=== PATIENT | male | born 1950 | race Caucasian/White ===

== ENCOUNTER 2018-03-07 20:47 | Emergency (ER) | payer MEDICARE, BC ==
[2015-11-16 17:16] VITALS: Wt 99.8 kg
[~2018-03-07 20:47] MED LIST: ASPI-1471 PO; CELE-1 PO; DOCU-416 PO; ESOM40CA42 PO; ESZ3PT PO; OXYC-865 PO; TAMS0.4C70 PO
--- NOTE | 2018-03-07 21:02 | ER Report ---
History and Physical Time Seen By MD: 21:01 HPI/ROS CHIEF COMPLAINT: Right hand injury HISTORY OF PRESENT ILLNESS: 67-year-old male patient presents to emergency room with complaint of right hand injury. Patient states he was at a dance recital for his granddaughter when he tripped over the seton fell onto them. He states when he did that that his fifth finger extended out resulting in a laceration between the fourth and fifth fingers. Also is having significant amounts of pain to the right fifth finger. He believes that he may have dislocated the finger. He denies any numbness or tingling. He states that his last tetanus shot was approximately 10 years ago. He denies any head or neck pain. He denies any nausea, vomiting or diarrhea. REVIEW OF SYSTEMS: Respiratory: No cough, no dyspnea. Cardiovascular: No chest pain, no palpitations. Gastrointestinal: No vomiting, no abdominal pain. Musculoskeletal: As noted above Allergies: Coded Allergies: No Known Drug Allergies (Unverified , 03/07/18) Home Meds Active Scripts Cephalexin 500 Mg Tab (KEFLEX 500 MG TAB) 500 Mg Tablet, 500 MG PO Q6H, #28 TAB Prov:GIOVANY MATAMOROS [facility] 03/07/18 Hydrocodone Bit/Acetaminophen (HYDROCODON-ACETAMINOPHEN 5-325) 1 Each Tablet, 1 EACH PO Q4-6H Y for PAIN, #12 TAB Prov:GIOVANY MATAMOROS [facility] 03/07/18 Reported Medications Chlorthalidone (CHLORTHALIDONE) 25 Mg Tab, 25 MG PO QDAY, TAB 03/07/18 Zolpidem Tartrate (AMBIEN) 10 Mg Tablet, 1 TAB PO QHS, TAB 03/07/18 Esomeprazole Magnesium (NEXIUM) 40 Mg Capsule.dr, 1 CAP PO QDAY, CAP 11/15/15 Tamsulosin Hcl (TAMSULOSIN HCL) 0.4 Mg Cap.er.24h, 0.4 MG PO QDAY, CAP 11/15/15 Aspirin (ASPIR 81) 81 Mg Tablet.dr, 81 MG PO QDAY, TAB 11/15/15 Discontinued Reported Medications Celecoxib (CELEBREX) 200 Mg Capsule, 200 MG PO PRN, CAPSULE 11/27/15 Past Medical/Surgical History Patient has a past medical history of asthma, cholecystitis, reflux, BPH, alcohol use. Patient has surgical history of hand surgery, bilateral shoulder surgery, bilateral hip replacement. Reviewed Nurses Notes: Yes Hx Smoking: Yes Smoking Status: Former Smoker Hx Substance Use Disorder: No Hx Alcohol Use: Yes Constitutional Vital Sign - Last 24 Hours 03/07/18 03/07/18 03/07/18 03/07/18 21:02 21:02 21:11 21:17 Temp 98.2 Pulse 75 72 Resp 16 B/P (MAP) 174/114 174/114 (134) 168/98 (121) Pulse Ox 92 94 O2 Delivery Room Air 03/07/18 03/07/18 03/07/18 03/07/18 21:32 21:47 22:02 22:17 Pulse 76 78 77 76 Pulse Ox 93 93 94 94 Physical Exam General Appearance: The patient is alert, has no immediate need for airway protection and no current signs of toxicity. Respiratory: Chest is non tender, lungs are clear to auscultation. Cardiac: regular rate and rhythm Gastrointestinal: Abdomen is soft and non tender, no masses, bowel sounds normal. Musculoskeletal: Neck: Neck is supple and non tender. Extremities have full range of motion and are non tender. Patient has deformity to the right fifth finger, laceration between the fourth and fifth fingers. It measures approximately 5 cm in length. I'm able to visualize the subcutaneous tissue. Patient is unable to adduct the fifth finger on the right hand. Skin: No rashes or lesions. DIFFERENTIAL DIAGNOSIS: After history and physical exam differential diagnosis was considered for fracture, dislocation, laceration. Medical Decision Making EKG/Imaging Imaging HAND COMPLETE RIGHT COMPARISONS: None. ADDITIONAL PERTINENT HISTORY: Fall with pain FINDINGS: Osseous structures: Remote-appearing bony irregularity involving the midportion of the right fifth metacarpal. No acute appearing bony abnormalities. Mild subchondral sclerosis and osteophyte formation involving the DIP joints of the right hand. Joint spaces: Mild joint space narrowing involving the DIP joints of the right hand. Surrounding soft tissues: Negative. IMPRESSION: 1. Remote appearing healed fracture of the midportion of the right fifth metacarpal. 2. Mild osteoarthritic changes involving the DIP joints of the right hand. 3. No acute bony abnormalities. Report Dictated By: Chip Aranda MD at 03/07/2018 9:57 PM Report E-Signed By: Chip Aranda MD at 03/07/2018 10:00 PM INDICATION: Postreduction EXAM DATE: 03/07/2018 10:47 PM COMPARISON: Same-day radiographs. FINDINGS: 3 views right small finger. Mineralization is normal. No acute alignment abnormality or fracture. Abnormal morphology of the 5th metacarpal likely related to remote fracture. Soft tissues appear swollen, and there is a small amount of soft tissue gas likely related to disruption. No radiopaque foreign body IMPRESSION: Suspected soft tissue disruption with no acute osseous abnormality of the right small finger. Report Dictated By: Justin Otero MD at 03/07/2018 11:06 PM Report E-Signed By: Justin Otero MD at 03/07/2018 11:09 PM ED Course/Re-evaluation ED Course Patient was admitted to exam room, history and physical were obtained. Differential diagnoses were considered. On examination lungs are clear, however patient does have a 5 cm laceration to the webbing between the fourth and fifth fingers. Patient has what appears to be a dislocation of the fifth finger. X- rays done of the right hand which did show no acute abnormalities, does appear to be lax to the medial aspect of the hand. The wound was anesthetized, cleaned and repaired as described below. A repeat x-ray was done after the digit was reduced. It does appear to be slightly improved. We will go ahead and place the patient in a ulnar gutter splint. I will have the patient follow-up with Dr. segura. He is to call on Friday to make an appointment. He can make an appointment in the clinic in [place]. I would like to go ahead and ice his hand through the splint. I discussed this with the patient and his and they verbalized understanding and agreement with plan. Procedure: Laceration repair. Verbal consent was obtained from the patient. The 5 cm laceration on the webbing between the fourth and fifth fingers was anesthetized in the usual fashion. The wound was scrubbed, draped and explored to its base with a gloved finger. There were no deep structures involved. There does appear to be laxities patient is not able to abduct his fifth finger. The wound was repaired with 12 simple interrupted sutures using 5-0 Prolene material. The wound repair was simple. The procedure was performed by myself. Procedure: Dislocation reduction. The right fifth finger was reduced in the usual fashion without complications. Post reduction the patient's neurovascular exam is normal. Post reduction x-ray demonstrates reduction of the joint to the anatomic position. The procedure was performed by myself. Procedure: Splint placement. A ulnar gutter splint was applied. After application of the splint I returned and re-examined the patient. The splint was adequately immobilizing the joint and distal to the splint the patient's circulation and sensation was intact. Decision to Disposition Date: March 07, 2018 Decision to Disposition Time: 22:58 Depart Departure Latest Vital Signs Vital Signs Date Time Temp Pulse Resp B/P (MAP) Pulse Ox O2 Delivery O2 Flow Rate FiO2 03/07/18 22:17 76 94 03/07/18 21:11 168/98 (121) 03/07/18 21:02 98.2 16 Room Air Impression: Primary Impression: Laceration Condition: Improved Disposition: HOME OR SELF-CARE Referrals: GHASSAN ALLEN MD Scripts Cephalexin 500 Mg Tab (KEFLEX 500 MG TAB) 500 Mg Tablet 500 MG PO Q6H, #28 TAB Prov: GIOVANY MATAMOROS 03/07/18 Hydrocodone Bit/Acetaminophen (HYDROCODON-ACETAMINOPHEN 5-325) 1 Each Tablet 1 EACH PO Q4-6H Y for PAIN, #12 TAB Prov: GIOVANY MATAMOROS 03/07/18 Patient Instructions: Hand Laceration Additional Instructions: Keep wound dry for 48 hours. Follow up with orthopedist,: Friday to make appointment. Monitor for signs of infection; redness, swelling, heat, discharge, increasing pain or red streaking. Return to the ER with any concerns. You may change dressing as needed. Limit activity by pain. Ice the hand through the splint; 2-3 times a day for 20-30 minutes. If the splint is feeling too tight you may loosen the moi wrap and rewrap it. Keep the splint dry, wrap it with a bag and tape to keep the water out. Return to the ER with uncontrollable pain or numbness to the hand. You may take Ibuprofen as needed for pain in addition to the pain medication. I do have some concern about a torn ligament in the hand, that is why it is so important that you follow up with an orthopedists. GIOVANY MATAMOROS March 07, 2018 21:01
[2018-03-07] MEDS ORDERED: ZOLP-350 PO (21:07)
[2018-03-07] MEDS ORDERED: CHLOR25 PO (21:08)
[2018-03-07] MEDS ORDERED: DIPHTH/TETANUS/ACEL. PERTUSSIS IM ONLY ONE (21:15)
[2018-03-07] MEDS ORDERED: APAP/HYDROCODONE 325/5 TAB PO ONE (21:50)
--- NOTE | 2018-03-07 22:04 | RADIOLOGY IMAGING REPORT ---
FACILITY: [facility] PATIENT NAME: Delta Kimble : 1950 MR: [id number] V: [id number] EXAM DATE: ORDERING PHYSICIAN: GIOVANY MATAMOROS TECHNOLOGIST: Location: [facility] Patient: Delta Kimble : 1950 Visit/Account:[id number] Date of Sevice: 03/07/2018 HAND COMPLETE RIGHT COMPARISONS: None. ADDITIONAL PERTINENT HISTORY: Fall with pain FINDINGS: Osseous structures: Remote-appearing bony irregularity involving the midportion of the right fifth me tacarpal. No acute appearing bony abnormalities. Mild subchondral sclerosis and osteophyte formation involving the DIP joints of the right hand. Joint spaces: Mild joint space narrowing involving the DIP joints of the right hand. Surrounding soft tissues: Negative. IMPRESSION: 1. Remote appearing healed fracture of the midportion of the right fifth metacarpal. 2. Mild osteoarthritic changes involving the DIP joints of the right hand. 3. No acute bony abnormalities. Report Dictated By: Chip Aranda MD at 03/07/2018 9:57 PM Report E-Signed By: Chip Aranda MD at 03/07/2018 10:00 PM WSN:[id number]
[2018-03-07] MEDS ORDERED: HYDR-385 PO (23:00)
[2018-03-07] MEDS ORDERED: CEPH500T7 PO (23:00)
--- NOTE | 2018-03-07 23:14 | RADIOLOGY IMAGING REPORT ---
FACILITY: [facility] [place] PATIENT NAME: Delta Kimble : 1950 MR: [id number] V: [id number] EXAM DATE: [id number] ORDERING PHYSICIAN: GIOVANY MATAMOROS TECHNOLOGIST: Location: [facility] [place] Patient: Delta Kimble : 1950 Visit/Account:[id number] Date of Sevice: 03/07/2018 INDICATION: Postreduction EXAM DATE: 03/07/2018 10:47 PM COMPARISON: Same-day radiographs. FINDINGS: 3 views right small finger. Mineralization is normal. No acute alignment abnormality or fracture. Ab normal morphology of the 5th metacarpal likely related to remote fracture. Soft tissues appear swoll en, and there is a small amount of soft tissue gas likely related to disruption. No radiopaque forei gn body IMPRESSION: Suspected soft tissue disruption with no acute osseous abnormality of the right small fi nger. Report Dictated By: Justin Otero MD at 03/07/2018 11:06 PM Report E-Signed By: Justin Otero MD at 03/07/2018 11:09 PM WSN:[id number]
[2018-03-07] MEDS ORDERED: ACET/HYDROC 5/325MG TH ER ONLY 2 TAB/BOTTLE PO ONE (23:15)
[2018-03-07] MEDS ORDERED: CEPHALEXIN 500 MG CAP TH 2 CAP/BOTTLE PO ONE (23:15)
[2018-03-07 23:28] VITALS: BP 173/104
== END 2018-03-07 23:40 | disposition home or self-care (01) ==
LOC: ER 21:06
DX: S61.411A Laceration without foreign body of right hand, initial encounter (principal); S63.256A Unspecified dislocation of right little finger, initial encounter; W01.190A Fall on same level from slipping, tripping and stumbling with subsequent striking against furniture, initial encounter
CPT/HCPCS: 12002; 26700; 73130; 73140; 90471; 90715; 99282; A9270

== ENCOUNTER → 2018-05-27 | Outpatient (CLI) | payer BC, MEDICARE ==
[2015-11-16 17:16] VITALS: BMI 28.2
[~2018-05-27] MED LIST changes: +ALBU8.5H IH; +CEPH500T7 PO; +CHLOR25 PO; +FLUINH INH; +HYDR-385 PO; +LOSA50TA72 PO; +ZOLP-350 PO
[2018-05-27 14:14] LABS: LDL CHOLESTEROL 84 mg/dl
[2018-05-27 15:11] LABS: PLATELET COUNT, AUTOMATED 207 K/uL (150-450)
== END ==
LOC: LAB 13:44
PROVIDERS: ATTEND Emergency Medicine
DX: Z12.5 Encounter for screening for malignant neoplasm of prostate (principal); I10 Essential (primary) hypertension
CPT/HCPCS: 36415; 82040; 82247; 82310; 82374; 82435; 82465; 82565; 82947; 83718; 84075; 84132; 84153; 84155; 84295; 84443; 84450; 84460; 84478; 84520; 85025

== ENCOUNTER → 2018-06-08 | Outpatient (CLI) | payer MEDICARE, BC ==
[2015-11-16 17:16] VITALS: BMI 28.2
== END ==
LOC: RESP 00:44
PROVIDERS: ATTEND Emergency Medicine
DX: J98.4 Other disorders of lung (principal)
CPT/HCPCS: 94060; 94726; 94729

== ENCOUNTER → 2018-07-01 | Outpatient (CLI) | payer MEDICARE, BC ==
[2015-11-16 17:16] VITALS: BMI 28.2
[~2018-07-01] MED LIST changes: +AMLO-111 PO; -LOSA50TA72 PO; +LOSA50TA74 PO; +NITR0.4T3 SL; +ROSU10TA5 PO
--- NOTE | 2018-07-01 16:15 | EKG ---
FACILITY: [facility] PATIENT NAME: NEETU ADORNO : [id number] MR: [id number] V: [id number] EXAM DATE: ORDERING PHYSICIAN: SHAVON DEGROOT TECHNOLOGIST: ABBY Test Reason : CHEST PAIN Blood Pressure : / mmHG Vent. Rate : 085 BPM Atrial Rate : 085 BPM P-R Int : 152 ms QRS Dur : 104 ms QT Int : 348 ms P-R-T Axes : 071 019 008 degrees QTc Int : 414 ms Normal sinus rhythm Normal ECG Confirmed by SHAVON DEGROOT ([id number]) on 07/02/2018 5:46:49 PM Referred By: Confirmed By:SHAVON DEGROOT
[2018-07-01 16:46] LABS: PLATELET COUNT, AUTOMATED 172 K/uL (150-450)
== END ==
LOC: LAB 16:04
PROVIDERS: ATTEND Emergency Medicine
DX: I10 Essential (primary) hypertension (principal)
CPT/HCPCS: 36415; 82310; 82374; 82435; 82565; 82947; 84132; 84295; 84484; 84520; 85025; 85379

== ENCOUNTER → 2018-07-21 | Outpatient (CLI) | payer MEDICARE, BC ==
[2015-11-16 17:16] VITALS: BMI 28.2
[~2018-07-21] MED LIST changes: +CAR3.125 PO; +LOSA100T69 PO; +REGADENOSON 0.4 MG/5 ML SYR ONE
--- NOTE | 2018-07-21 16:50 | RADIOLOGY IMAGING REPORT ---
FACILITY: [facility] [place] PATIENT NAME: Delta Kimble : 1950 MR: [id number] V: [id number] EXAM DATE: ORDERING PHYSICIAN: SHAVON DEGROOT TECHNOLOGIST: Location: [facility] Patient: Delta Kimble : 1950 Visit/Account:[id number] Date of Sevice: 07/21/2018 EXAMINATION: Single isotope SPECT imaging with Regadenoson infusion and gated SPECT imaging. DATE OF EXAMINATION: July 21, 2018. DATE OF INTERPRETATION: July 21, 2018. REQUESTING PHYSICIAN: SHAVON DEGROOT. INDICATION: The patient is a 68-year-old male evaluated for chest pain. PROCEDURE: After informed consent the patient received an intravenous injection of 11.2 mCi of Tc-99 m sestamibi followed at an appropriate time interval by rest imaging. The patient then subsequently received an intravenous infusion of 0.4 mg of Regadenoson per protocol without complication. Resting heart rate was 82 bpm with a peak heart rate of 107 bpm. Blood pressure at rest was 125 / 81 and fo llowing infusion was 144 / 70. Baseline EKG demonstrates normal sinus rhythm with inferior wave abno rmalities. There were no diagnostic EKG changes of ischemia following infusion. Symptoms were nonsp ecific. The patient then received an intravenous injection of 29.2 mCi of Tc-99m sestamibi followed by stress imaging. RAW DATA: Examination of the summed raw data revealed a fair quality study. MYOCARDIAL PERFUSION: The tomographic images demonstrate a subtle inferior defect at rest that seems to improve with stress and nearly normalizes with prone imaging. This is likely diaphragmatic attenu ation in an otherwise normal study. A small inferior wall NE cannot be completely excluded. No ischem ia would be predicted.. GATED IMAGES: The gated images demonstrate a normal ejection fraction at 60%. The wall motion is nor mal.. IMPRESSION: 1. Baseline EKG shows normal sinus rhythm with inferior T wave abnormalities. There are no diagnosti c changes during the procedure. The perfusion imaging has an inferior defect that is felt to be artif act. This is probably a normal scan. A small inferior wall NE cannot be completely excluded. No ische vtia would be predicted. 2. Probably normal myocardial perfusion scan. 3. Normal LV systolic function; LVEF 60%. 4. Based on the results of this exam, the patient appears to be at low risk for future cardiovascular events. Report Dictated By: Paul Espinoza MD at 07/21/2018 4:42 PM Report E-Signed By: Paul Espinoza MD at 07/21/2018 4:45 PM WSN:[id number]
== END ==
LOC: NUC 00:31
PROVIDERS: ATTEND Emergency Medicine
DX: R07.9 Chest pain, unspecified (principal)
CPT/HCPCS: 78452; 93017; A9500; J2785

== ENCOUNTER → 2018-08-06 | Outpatient (CLI) | payer MEDICARE, BC ==
[2015-11-16 17:16] VITALS: BMI 28.2
[~2018-08-06] MED LIST changes: +FLU180SY11 IM; -REGADENOSON 0.4 MG/5 ML SYR ONE; +[UNRECOGNIZED DRUG - CODE] PO
== END ==
LOC: LAB 08:19
PROVIDERS: ATTEND Emergency Medicine
DX: G62.9 Polyneuropathy, unspecified (principal); I10 Essential (primary) hypertension
CPT/HCPCS: 36415; 82465; 82607; 83718; 84478

== ENCOUNTER → 2018-09-09 | Outpatient (CLI) | payer MEDICARE, BC ==
[2015-11-16 17:16] VITALS: BMI 28.2
[~2018-09-09] MED LIST changes: +CAR6.25 PO; +CYA1000 PO
--- NOTE | 2018-09-11 18:38 | RT HOLTER TEST ---
FACILITY: [facility] PATIENT NAME: NEETU ADORNO : [id number] MR: [id number] V: [id number] EXAM DATE: ORDERING PHYSICIAN: SHAVON DEGROOT TECHNOLOGIST: Brian Hook-up date: 2018-09-09 08:29:00 Duration: 47:59:00 Test Indications: CP Medications: 840895 QRS complexes 1186 Ventricular ectopics which represent <1 % of total QRS comp. 777 Supraventricular ectopics which represent <1 % of total QRS comp. * Paced QRS complexes which represent % of total QRS comp. VENTRICULAR ECTOPY 1179 Isolated 0 Bigeminal Cycles 2 Couplets 1 Runs 3 Beats in Runs 3 Beats LONGEST at 174 BPM at 23:35:32 2018-09-09 3 Beats FASTEST at 174 BPM at 23:35:32 2018-09-09 SUPRAVENTRICULAR ECTOPY 631 Isolated 65 Couplets 5 Runs 16 Beats in Runs 4 Beats LONGEST at 138 BPM at 04:21:24 2018-09-11 4 Beats FASTEST at 138 BPM at 04:21:24 2018-09-11 HEART RATES 50 MIN at 02:12:30 2018-09-10 73 AVG 123 MAX at 15:05:25 2018-09-10 LONGEST RR 1.552 secs at 04:54:18 2018-09-10 Channel 2 -12.800 mm MIN at 08:29:00 2018-09-09 -12.800 mm MAX at 08:29:00 2018-09-09 Channel 3 -12.800 mm MIN at 08:29:00 2018-09-09 -12.800 mm MAX at 08:29:00 2018-09-09 Sinus rhythm Premature ventricular complexes Couplets Premature supraventricular complexes Confirmed by ALL SANCHEZ ([id number]) on 09/11/2018 6:39:02 PM Referred By: Overread By: ALL SANCHEZ
== END ==
LOC: RESP 01:04
PROVIDERS: ATTEND Emergency Medicine
DX: I49.49 Other premature depolarization (principal)
CPT/HCPCS: 93225; 93226

== ENCOUNTER 2018-10-22 18:44 | Emergency (ER) | payer MEDICARE ==
[2015-11-16 17:16] VITALS: Wt 111.1 kg
[~2018-10-22 18:44] MED LIST changes: -LOSA100T69 PO; +LOSA100T75 PO; -LOSA50TA74 PO; +LOSA50TA80 PO
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
[2018-10-22] MEDS ORDERED: fentaNYL CITR 100 MCG/2 ML AMP IVP ONE (19:00)
[2018-10-22] MEDS ORDERED: ONDANSETRON 4 MG/2 ML VIAL IVP ONE (19:00)
[2018-10-22] MEDS ORDERED: LIDOCAINE 2% VISC SLN 15ML UDC PO ONE (19:00)
[2018-10-22] MEDS ORDERED: MAG HYD/AL HYD/SIMETH 30ML UDC PO ONE (19:00)
[2018-10-22 19:11] LABS: PLATELET COUNT, AUTOMATED 218 K/uL (150-450)
[2018-10-22] MEDS ORDERED: NS(*) 0.9% 1000 ML BAG 1,000 ML IV ONE (19:45)
[2018-10-22] MEDS ORDERED: IOPAMIDOL 76% 75 ML INFUS BTL 75 ML ONE (20:10)
[2018-10-22 21:30] VITALS: BP 127/78
--- NOTE | 2018-10-22 21:38 | RADIOLOGY IMAGING REPORT ---
FACILITY: [facility] [place] PATIENT NAME: Delta Kimble : 1950 MR: [id number] V: [id number] EXAM DATE: ORDERING PHYSICIAN: DELTA WOODRUFF TECHNOLOGIST: Location: [facility] - [place] Patient: Delta Kimble : 1950 Visit/Account:[id number] Date of Sevice: 10/22/2018 CT of the chest, abdomen, and pelvis with contrast: Indication: Chronic chest pain and epigastric pain. Technique: Helical CT was performed through the chest, abdomen, and pelvis following IV contrast enha ncement with 75 cc of Isovue-370. Multiplanar reconstructions are reviewed. One of the following dose optimization techniques was utilized in the performance of this exam: Autom ated exposure control; adjustment of the mA and/or kV according to the patient's size; or use of an i terative reconstruction technique. Specific details can be referenced in the facility's radiology CT exam operational policy. Comparison: None available. Findings: Lungs: Well-expanded and clear. No focal or diffuse parenchymal abnormalities are identified. Pleural spaces: There is no evidence of effusion, focal pleural thickening, calcification, or mass. Mediastinum: There is mild calcification in the aortic wall and coronary arteries. There are no signs of aortic aneurysm, dissection, or significant atherosclerosis. The heart size is normal. No pericardial effusion or soft tissue abnormality is identified. There are no signs of mediastinal soft tissue mass or lymph node enlargement. Liver: Normal in size, shape, and density. The venous structures are unremarkable, as visualized. Gallbladder and biliary tree: There are surgical clips related to prior cholecystectomy. The bile joel ts are not dilated. Pancreas: Normal in size, shape, and density. There are no signs of peripancreatic inflammation or fl uid. Spleen: Normal in size, shape, and density. A small accessory spleen is incidentally noted. Adrenal glands: Within normal limits. Kidneys: Normal in size, shape, and density. A tiny cyst is present at the lower pole of the left kid nydia. There are no signs of urinary tract calculus or obstruction. Intestinal structures: Unremarkable, as visualized. There is no evidence of obstruction or focal infl ammatory changes. There are no signs of diverticulosis, diverticulitis, or appendicitis. Aorta: There is mild atherosclerotic calcification in the aorta and iliac arteries. There are no sign s of aneurysm. No retroperitoneal soft tissue abnormality is identified. Urinary bladder: Unremarkable, as visualized. However, there is significant streak artifact related t o bilateral hip prostheses. Pelvic structures: Unremarkable, as visualized. Ascites or fluid collections: None seen. Skeletal structures: There are bilateral shoulder and bilateral hip prostheses. There are diffuse mod erate degenerative changes in the spine. No acute skeletal deformity is clearly identified. IMPRESSION: No acute process is identified in the chest, abdomen, or pelvis. Report Dictated By: Samuel Clark MD at 10/22/2018 9:22 PM Report E-Signed By: Samuel Clark MD at 10/22/2018 9:34 PM WSN:[id number]
[2018-10-22] MEDS ORDERED: ONDA4TAB97 PO (21:49)
[2018-10-22] MEDS ORDERED: OXYC-865 PO (21:49)
[2018-10-22] MEDS ORDERED: oxyCODONE/ACETAMIN 5/325MG TH 2 TAB/BOTTLE PO ONE (21:50)
[2018-10-22] MEDS ORDERED: ONDANSETRON 4 MG ODT TH SL ONE (21:50)
--- NOTE | 2018-10-23 06:26 | EKG ---
[facility] PATIENT NAME: NEETU ADORNO : [id number] MR: [id number] V: [id number] EXAM DATE: ORDERING PHYSICIAN: NEETU WOODRUFF TECHNOLOGIST: JUANA Test Reason : EPIGASTRIC PAIN Blood Pressure : / mmHG Vent. Rate : 087 BPM Atrial Rate : 087 BPM P-R Int : 162 ms QRS Dur : 096 ms QT Int : 368 ms P-R-T Axes : 068 011 030 degrees QTc Int : 442 ms Sinus rhythm with premature ventricular complex Possible left atrial enlargement No previous ECGs available Confirmed by CELIA GOEL ([id number]) on 10/23/2018 6:42:07 AM Referred By: Confirmed By:CELIA GOEL
== END 2018-10-22 22:01 | disposition home or self-care (01) ==
LOC: ER 18:48
DX: R10.13 Epigastric pain (principal)
CPT/HCPCS: 71260; 74177; 81001; 82150; 83605; 83690; 83880; 84484; 85025; 85379; 93005; 96361; 96374; 96375; 99284; A9270; J2405; J3010; J7030; Q9967; 82040; 82247; 82310; 82374; 82435; 82565; 82947; 84075; 84132; 84155; 84295; 84450; 84460; 84520

== ENCOUNTER → 2018-11-18 | Outpatient (CLI) | payer MEDICARE, BC ==
[2015-11-16 17:16] VITALS: BMI 28.2
[~2018-11-18] MED LIST changes: -AMLO-111 PO; +AMLO-125 PO; +BARIUM SULFATE 176 GM BTL PO ONE; +BARIUM SULFATE 340 GM POWD ONE; +ONDA4TAB97 PO
--- NOTE | 2018-11-18 15:06 | RADIOLOGY IMAGING REPORT ---
FACILITY: [facility] - [place] PATIENT NAME: Delta Kimble : 1950 MR: [id number] V: [id number] EXAM DATE: ORDERING PHYSICIAN: ROSY MCGHEE TECHNOLOGIST: [place] [facility] [place] Kimble : 1950 Visit/Account:[id number] Date of Sevice: 11/18/2018 Exam type: ESOPHAGRAM History: Reflux, pain, hernia Comparison: None. Findings: Double contrast esophagram was performed with thick and thin barium and air contrast.. There is an i mpression along the posterior wall of the upper cervical esophagus by dominant anterior osteophytes a t C6-7 there is a small hiatal hernia with no significant distal esophageal narrowing. No mucosal er osions identified. The patient received a 12 mm barium tablet which passed freely into the stomach. There was a moderate amount of gastroesophageal reflux observed. The fluoroscopy dose area product was 284.16 micro-Lantigua per meter squared IMPRESSION: 1. Small hiatal hernia with a moderate amount of gastroesophageal reflux. No significant esophageal narrowing was identified distally and no mucosal erosions are seen There is an impression along the posterior wall the upper cervical esophagus by prominent anterior os teophytes at C6-7 Report Dictated By: Stephanie Cramer MD at 11/18/2018 2:57 PM Report E-Signed By: Stephanie Cramer MD at 11/18/2018 3:01 PM WSN:[id number]
== END ==
LOC: RAD 09:05
PROVIDERS: ATTEND Internal Medicine Gastroenterology
DX: K44.9 Diaphragmatic hernia without obstruction or gangrene (principal)
CPT/HCPCS: 74220

== ENCOUNTER → 2018-12-17 | Outpatient (CLI) | payer MEDICARE, BC ==
[2015-11-16 17:16] VITALS: BMI 28.2
[~2018-12-17] MED LIST changes: -BARIUM SULFATE 176 GM BTL PO ONE; -BARIUM SULFATE 340 GM POWD ONE
== END ==
LOC: LAB 14:01
PROVIDERS: ATTEND Emergency Medicine
DX: E53.8 Deficiency of other specified B group vitamins (principal); I10 Essential (primary) hypertension
CPT/HCPCS: 36415; 82310; 82374; 82435; 82565; 82607; 82947; 84132; 84295; 84520

== ENCOUNTER → 2019-03-26 | Outpatient (CLI) | payer MEDICARE ==
[2015-11-16 17:16] VITALS: BMI 28.2
[~2019-03-26] MED LIST changes: +ISOS10TA63 PO; +TAMS0.4C25 PO
== END ==
LOC: LAB 07:41
PROVIDERS: ATTEND Emergency Medicine
DX: R94.5 Abnormal results of liver function studies (principal)
CPT/HCPCS: 36415; 82040; 82247; 82248; 84075; 84155; 84450; 84460